=== PATIENT | female | born 1940 | race Two or more races ===

== ENCOUNTER 2018-03-21 15:05 | Inpatient (IN) | payer BC, MEDICARE ==
[~2018-03-21] VITALS: Ht 154.9 cm; Wt 76.0 kg
[~2018-03-21 15:05] MED LIST: ASPI-529 PO
[2018-03-21 15:30] LABS: BASOPHILS # (AUTO) 0.1 X10'3 (0-0.2); BASOPHILS % (AUTO) 0.6 % (0-1); EOSINOPHILS # (AUTO) 0.5 X10'3 (0-0.9); EOSINOPHILS % (AUTO) 3.7 % (0-6); HEMATOCRIT 43.2 % (35.0-45.0); LYMPHOCYTES # (AUTO) 5.1 X10'3 (1.1-4.8); LYMPHOCYTES % (AUTO) 37.6 % (21-51); MEAN CORPUSCULAR HEMOGLOBIN 32.1 PG (27.0-31.0); MEAN CORPUSCULAR HGB CONC 34.7 % (33.0-36.5); MEAN CORPUSCULAR VOLUME 92.4 FL (78-98); MEAN PLATELET VOLUME 10.2 FL (7.4-10.4); MONOCYTES # (AUTO) 0.6 X10'3 (0-0.9); MONOCYTES % (AUTO) 4.3 % (2-12); NEUTROPHILS # (AUTO) 7.3 X10'3 (1.8-7.7); NEUTROPHILS % (AUTO) 53.8 % (42-75); PLATELET COUNT 279 X10'3 (140-440); RED BLOOD COUNT 4.68 X10'6 (4.20-5.60); RED CELL DISTRIBUTION WIDTH 12.5 % (11.5-14.5); WHITE BLOOD COUNT 13.6 X10'3 (4.5-11.0)
[2018-03-21 15:40] LABS: PARTIAL THROMBOPLASTIN TIME 24 SECONDS (22-32); PROTHROMBIN TIME 10.7 SECONDS (9.0-12.0)
[2018-03-21 15:44] LABS: ALANINE AMINOTRANSFERASE 48 U/L (12-78); ALBUMIN 4.4 G/DL (3.4-5.0); ALBUMIN/GLOBULIN RATIO 1.2 (1.1-1.5); ALKALINE PHOSPHATASE 99 IU/L (46-116); ANION GAP 11 (8-16); ASPARTATE AMINO TRANSFERASE 53 U/L (10-37); BILIRUBIN,TOTAL 0.7 MG/DL (0.1-1.0); BLOOD UREA NITROGEN 15 MG/DL (7-18); CALCIUM 9.8 MG/DL (8.5-10.1); CHLORIDE 102 MMOL/L (99-107); CREATININE 0.94 MG/DL (0.40-0.90); GLUCOSE 145 MG/DL (70-104); POTASSIUM 3.6 MMOL/L (3.5-5.1); SODIUM 140 MMOL/L (135-145); TOTAL CARBON DIOXIDE 26.6 MMOL/L (24-32); eGFR 58 ML/MIN
[2018-03-21] MEDS ORDERED: acetaminophen 325mg tablet PO ONE (16:30)
[2018-03-21] MEDS ORDERED: ondansetron 4mg rapidly disintigrating tab PO ONE (16:30)
[2018-03-21 17:12] LABS: LIPASE 10333 U/L (73-393)
[2018-03-21] MEDS ORDERED: piperacillin/tazo 3.375gm/50ml 50 ML IV ONE (18:15)
[2018-03-21] MEDS ORDERED: normal saline 1000ML IV soln IVB ONE (18:15)
[2018-03-21] MEDS ORDERED: normal saline 1000ml 1,000 ML IV ONE (18:15)
[2018-03-21] MEDS ORDERED: NO HOME MEDS (18:40)
[2018-03-21] MEDS ORDERED: ondansetron/PF 4mg/2ml inj IV PRN (19:35)
[2018-03-21] MEDS ORDERED: CADD PCA waste documentation MC PRN (19:40)
[2018-03-21] MEDS ORDERED: naloxone 0.4 mg/ml inj IV PRN (19:40)
[2018-03-21] MEDS ORDERED: LISI-604 PO (19:45)
[2018-03-21 20:30] VITALS: BP 160/68
[2018-03-21] MEDS: HYDROmorphone/NS 1 mg/ml CADD 50 ML IV SCH ×2 (20:33→22:47)
[2018-03-21] MEDS: normal saline 1000ml 1,000 ML IV SCH (20:33)
[2018-03-21] MEDS: heparin, porcine 5000 units/ml vial SQ SCH (20:37)
[2018-03-21 22:00] VITALS: BP 104/64
[2018-03-22] MEDS: piperacillin/tazo 3.375gm/50ml 50 ML IV SCH ×4 (00:02→23:18)
[2018-03-22] MEDS: HYDROmorphone/NS 1 mg/ml CADD 50 ML IV SCH ×12 (01:00→23:00)
[2018-03-22] MEDS: normal saline 1000ml 1,000 ML IV SCH ×2 (05:40→15:14)
[2018-03-22] MEDS ORDERED: HYDR-3972 PO (05:44)
[2018-03-22 06:00] VITALS: BP 116/46
[2018-03-22] MEDS: heparin, porcine 5000 units/ml vial SQ SCH ×3 (06:34→19:21)
[2018-03-22 06:59] LABS: ALANINE AMINOTRANSFERASE 324 U/L (12-78); ALBUMIN 3.2 G/DL (3.4-5.0); ALBUMIN/GLOBULIN RATIO 1.1 (1.1-1.5); ALKALINE PHOSPHATASE 96 IU/L (46-116); ANION GAP 9 (8-16); ASPARTATE AMINO TRANSFERASE 463 U/L (10-37); BILIRUBIN,TOTAL 1.7 MG/DL (0.1-1.0); BLOOD UREA NITROGEN 15 MG/DL (7-18); BUN/CREATININE RATIO 18.1 (6.6-38.0); CALCIUM 8.2 MG/DL (8.5-10.1); CHLORIDE 105 MMOL/L (99-107); CREATININE 0.83 MG/DL (0.40-0.90); GLUCOSE 152 MG/DL (70-104); POTASSIUM 4.9 MMOL/L (3.5-5.1); SODIUM 140 MMOL/L (135-145); TOTAL CARBON DIOXIDE 25.7 MMOL/L (24-32); eGFR 67 ML/MIN
[2018-03-22 07:09] LABS: LIPASE 3880 U/L (73-393)
[2018-03-22 08:21] LABS: BASOPHILS % (AUTO) 0.3 % (0-1); EOSINOPHILS # (AUTO) 0.1 X10'3 (0-0.9); EOSINOPHILS % (AUTO) 0.4 % (0-6); HEMATOCRIT 34.2 % (35.0-45.0); HEMOGLOBIN 11.8 g/dl (12.0-16.0); LYMPHOCYTES # (AUTO) 0.8 X10'3 (1.1-4.8); LYMPHOCYTES % (AUTO) 6.5 % (21-51); MEAN CORPUSCULAR HGB CONC 34.5 % (33.0-36.5); MEAN CORPUSCULAR VOLUME 92.7 FL (78-98); MONOCYTES # (AUTO) 0.6 X10'3 (0-0.9); MONOCYTES % (AUTO) 5.6 % (2-12); NEUTROPHILS % (AUTO) 87.2 % (42-75); PLATELET COUNT 192 X10'3 (140-440); RED BLOOD COUNT 3.69 X10'6 (4.20-5.60); RED CELL DISTRIBUTION WIDTH 12.9 % (11.5-14.5); WHITE BLOOD COUNT 11.5 X10'3 (4.5-11.0)
[2018-03-22 10:00] VITALS: BP 96/41
[2018-03-22 18:00] VITALS: BP 109/44
[2018-03-22] MEDS ORDERED: acetaminophen 325mg tablet PO PRN (19:15)
[2018-03-22] MEDS: lactobacillus rhamnosus 10,000 MMU CELLS/CAPSULE PO SCH (19:21)
[2018-03-22 22:00] VITALS: BP 119/44
[2018-03-23] MEDS: HYDROmorphone/NS 1 mg/ml CADD 50 ML IV SCH ×3 (01:00→05:00)
[2018-03-23] MEDS: normal saline 1000ml 1,000 ML IV SCH ×3 (02:24→14:39)
[2018-03-23 05:00] VITALS: BP 137/67
[2018-03-23 05:27] LABS: BASOPHILS % (AUTO) 0.3 % (0-1); EOSINOPHILS # (AUTO) 0.1 X10'3 (0-0.9); EOSINOPHILS % (AUTO) 0.9 % (0-6); HEMOGLOBIN 11.4 g/dl (12.0-16.0); LYMPHOCYTES % (AUTO) 9.2 % (21-51); MEAN CORPUSCULAR HGB CONC 34.4 % (33.0-36.5); MEAN PLATELET VOLUME 10.4 FL (7.4-10.4); MONOCYTES # (AUTO) 0.6 X10'3 (0-0.9); MONOCYTES % (AUTO) 5.2 % (2-12); NEUTROPHILS # (AUTO) 9.1 X10'3 (1.8-7.7); NEUTROPHILS % (AUTO) 84.4 % (42-75); PLATELET COUNT 168 X10'3 (140-440); RED BLOOD COUNT 3.54 X10'6 (4.20-5.60); RED CELL DISTRIBUTION WIDTH 13.3 % (11.5-14.5); WHITE BLOOD COUNT 10.8 X10'3 (4.5-11.0)
[2018-03-23 05:56] LABS: ALANINE AMINOTRANSFERASE 190 U/L (12-78); ALBUMIN 2.8 G/DL (3.4-5.0); ALBUMIN/GLOBULIN RATIO 0.9 (1.1-1.5); ALKALINE PHOSPHATASE 95 IU/L (46-116); ANION GAP 8 (8-16); ASPARTATE AMINO TRANSFERASE 123 U/L (10-37); BILIRUBIN,TOTAL 1.7 MG/DL (0.1-1.0); BLOOD UREA NITROGEN 11 MG/DL (7-18); BUN/CREATININE RATIO 16.2 (6.6-38.0); CALCIUM 8.1 MG/DL (8.5-10.1); CHLORIDE 105 MMOL/L (99-107); CREATININE 0.68 MG/DL (0.40-0.90); GLUCOSE 104 MG/DL (70-104); POTASSIUM 3.7 MMOL/L (3.5-5.1); SODIUM 139 MMOL/L (135-145); TOTAL CARBON DIOXIDE 25.6 MMOL/L (24-32); TOTAL PROTEIN 5.9 G/DL (6.4-8.2); eGFR 84 ML/MIN
[2018-03-23 10:00] VITALS: BP 156/72
[2018-03-23] MEDS: piperacillin/tazo 3.375gm/50ml 50 ML IV SCH ×3 (10:10→23:15)
[2018-03-23] MEDS: heparin, porcine 5000 units/ml vial SQ SCH ×2 (10:19→19:20)
[2018-03-23] MEDS: lisinopril 10 MG tablet PO SCH (10:19)
[2018-03-23] MEDS: lactobacillus rhamnosus 10,000 MMU CELLS/CAPSULE PO SCH ×2 (10:20→19:21)
[2018-03-23] MEDS ORDERED: HYDROcodone/acetaminophen 5mg/325mg tablet PO PRN (12:20)
[2018-03-23] MEDS: HYDROcodone/acetaminophen 10/325mg tab PO PRN ×3 (12:51→23:13)
[2018-03-23 18:00] VITALS: BP 129/57
[2018-03-23 22:00] VITALS: BP 137/56
[2018-03-24] MEDS: HYDROcodone/acetaminophen 10/325mg tab PO PRN ×3 (04:15→17:07)
[2018-03-24] MEDS: normal saline 1000ml 1,000 ML IV SCH (04:49)
[2018-03-24 05:00] VITALS: BP 136/51
[2018-03-24 06:04] LABS: BASOPHILS % (AUTO) 0.5 % (0-1); EOSINOPHILS # (AUTO) 0.3 X10'3 (0-0.9); EOSINOPHILS % (AUTO) 2.8 % (0-6); HEMATOCRIT 29.4 % (35.0-45.0); HEMOGLOBIN 10.3 g/dl (12.0-16.0); LYMPHOCYTES # (AUTO) 0.7 X10'3 (1.1-4.8); LYMPHOCYTES % (AUTO) 7.6 % (21-51); MEAN CORPUSCULAR HGB CONC 34.9 % (33.0-36.5); MEAN CORPUSCULAR VOLUME 91.5 FL (78-98); MEAN PLATELET VOLUME 10.6 FL (7.4-10.4); MONOCYTES # (AUTO) 0.6 X10'3 (0-0.9); MONOCYTES % (AUTO) 6.4 % (2-12); NEUTROPHILS # (AUTO) 7.9 X10'3 (1.8-7.7); NEUTROPHILS % (AUTO) 82.7 % (42-75); PLATELET COUNT 164 X10'3 (140-440); RED BLOOD COUNT 3.21 X10'6 (4.20-5.60); RED CELL DISTRIBUTION WIDTH 12.8 % (11.5-14.5); WHITE BLOOD COUNT 9.6 X10'3 (4.5-11.0)
[2018-03-24 06:36] LABS: ALANINE AMINOTRANSFERASE 120 U/L (12-78); ALBUMIN 2.6 G/DL (3.4-5.0); ALBUMIN/GLOBULIN RATIO 0.8 (1.1-1.5); ALKALINE PHOSPHATASE 92 IU/L (46-116); ANION GAP 12 (8-16); ASPARTATE AMINO TRANSFERASE 45 U/L (10-37); BILIRUBIN,TOTAL 1.1 MG/DL (0.1-1.0); BLOOD UREA NITROGEN 7 MG/DL (7-18); BUN/CREATININE RATIO 10.3 (6.6-38.0); CALCIUM 8.3 MG/DL (8.5-10.1); CHLORIDE 104 MMOL/L (99-107); CREATININE 0.68 MG/DL (0.40-0.90); GLUCOSE 122 MG/DL (70-104); POTASSIUM 3.4 MMOL/L (3.5-5.1); SODIUM 140 MMOL/L (135-145); TOTAL CARBON DIOXIDE 24.5 MMOL/L (24-32); TOTAL PROTEIN 5.9 G/DL (6.4-8.2); eGFR 84 ML/MIN
[2018-03-24 06:52] LABS: LARGE PLATELETS FEW; PLATELET ESTIMATE NORMAL
[2018-03-24] MEDS: piperacillin/tazo 3.375gm/50ml 50 ML IV SCH ×2 (07:55→16:15)
[2018-03-24] MEDS: lisinopril 10 MG tablet PO SCH (07:56)
[2018-03-24] MEDS: lactobacillus rhamnosus 10,000 MMU CELLS/CAPSULE PO SCH (07:56)
[2018-03-24] MEDS: heparin, porcine 5000 units/ml vial SQ SCH (07:56)
[2018-03-24 10:00] VITALS: BP 143/64
[2018-03-24] MEDS ORDERED: METR500T4 PO (11:37)
== END 2018-03-24 17:45 | disposition home or self-care (01) | DRG 439 ==
LOC: ER 15:05 → ED HOLD 19:35 → ORTHO 4S 20:10
PROVIDERS: ADMIT Internal Medicine; ATTEND Internal Medicine
DX: K85.10 Biliary acute pancreatitis without necrosis or infection (principal); K56.7 Ileus, unspecified; I10 Essential (primary) hypertension; Z96.651 Presence of right artificial knee joint; T40.2X5A Adverse effect of other opioids, initial encounter; Z98.84 Bariatric surgery status; Y92.89 Other specified places as the place of occurrence of the external cause
CPT/HCPCS: 36415; 71045; 74176; 74181; 80053; 82948; 83605; 83690; 84484; 85025; 85610; 85730; 87070; 96365; 99285; J1170; J1644; J2543; J7030

== ENCOUNTER → 2018-04-04 | Day surgery (SDC) | payer BC, MEDICARE ==
[~2018-04-04] VITALS: Ht 154.9 cm; Wt 74.9 kg
[2018-04-04] VITALS (11 sets, daily range): BP systolic 138–161; BP diastolic 73–81
[~2018-04-04] MED LIST changes: -ASPI-529 PO; +BUPIVAcaine/PF 2.5mg/ml (0.25%) 10ml vial ONE; +HYDR-3972 PO; +HYDROcodone/acetaminophen 10/325mg tab PO ONE; +LISI-604 PO; +ceFAZolin 1000mg inj ONE; +ceFOXitin 2 GM ADDvantage bag 100 ML IV ONE; +famotidine 20mg tablet PO ONE; +fentaNYL/PF 50MCG/1 ML 2ML syringe ONE; +meperidine/PF 25mg/ml syringe IV PRN; +midazolam 2 mg/2 ml injection ONE; +morphine 4 MG/ML inj SYRINge IV PRN; +neostigmine methylsulfate 1 MG/ML 10ml vial ONE; +ondansetron/PF 4mg/2ml inj IV PRN; +proCHLORperazine 10 MG/2 ml inj IV PRN; +propofol inj 20 ML IV ONE; +ringers solution, lacted 1,000 ML IV SCH; +rocuronium 10mg/ml inj IV ONE
[2018-04-04 14:41] LABS: BASOPHILS # (AUTO) 0.1 X10'3 (0-0.2); BASOPHILS % (AUTO) 0.9 % (0-1); EOSINOPHILS # (AUTO) 0.2 X10'3 (0-0.9); EOSINOPHILS % (AUTO) 2.3 % (0-6); HEMATOCRIT 38.5 % (35.0-45.0); HEMOGLOBIN 13.1 g/dl (12.0-16.0); LYMPHOCYTES # (AUTO) 1.9 X10'3 (1.1-4.8); LYMPHOCYTES % (AUTO) 23.2 % (21-51); MEAN CORPUSCULAR HEMOGLOBIN 31.6 PG (27.0-31.0); MEAN CORPUSCULAR HGB CONC 34.2 % (33.0-36.5); MEAN CORPUSCULAR VOLUME 92.5 FL (78-98); MEAN PLATELET VOLUME 10.2 FL (7.4-10.4); MONOCYTES # (AUTO) 0.5 X10'3 (0-0.9); MONOCYTES % (AUTO) 5.9 % (2-12); NEUTROPHILS # (AUTO) 5.5 X10'3 (1.8-7.7); NEUTROPHILS % (AUTO) 67.7 % (42-75); PLATELET COUNT 334 X10'3 (140-440); RED BLOOD COUNT 4.16 X10'6 (4.20-5.60); RED CELL DISTRIBUTION WIDTH 12.6 % (11.5-14.5); WHITE BLOOD COUNT 8.1 X10'3 (4.5-11.0)
[2018-04-04 14:47] LABS: ALANINE AMINOTRANSFERASE 43 U/L (12-78); ALBUMIN/GLOBULIN RATIO 1.1 (1.1-1.5); ALKALINE PHOSPHATASE 79 IU/L (46-116); ANION GAP 10 (8-16); ASPARTATE AMINO TRANSFERASE 27 U/L (10-37); BILIRUBIN,TOTAL 0.6 MG/DL (0.1-1.0); BLOOD UREA NITROGEN 15 MG/DL (7-18); CALCIUM 9.4 MG/DL (8.5-10.1); CHLORIDE 101 MMOL/L (99-107); CREATININE 0.88 MG/DL (0.40-0.90); GLUCOSE 188 MG/DL (70-104); POTASSIUM 4.8 MMOL/L (3.5-5.1); SODIUM 136 MMOL/L (135-145); TOTAL CARBON DIOXIDE 24.7 MMOL/L (24-32); TOTAL PROTEIN 7.6 G/DL (6.4-8.2); eGFR 63 ML/MIN
[2018-04-04 14:50] LABS: CLARITY,URINE CLEAR (Clear); COLOR,URINE YELLOW (Yellow); GLUCOSE, URINE NEGATIVE (Neg); KETONES,URINE NEGATIVE (Neg); LEUKOCYTE ESTERASE ,URINE NEGATIVE (Neg); NITRITES, URINE NEGATIVE (Neg); OCCULT BLOOD,URINE NEGATIVE (Neg); PH,URINE 5.5 (4.8-8.0); PROTEIN,URINE NEGATIVE (Neg); UROBILINOGEN,URINE 0.2 E.U/dL (0.2-1.0)
[2018-04-04 14:52] LABS: UA COLLECTION TYPE CLN CATCH MIDSTREAM
[2018-04-04] MEDS: meperidine/PF 25mg/ml syringe IV PRN ×2 (16:45→16:57)
== END | disposition home or self-care (01) ==
LOC: PAS 13:27
PROVIDERS: ATTEND Surgery
DX: K80.10 Calculus of gallbladder with chronic cholecystitis without obstruction (principal); D36.0 Benign neoplasm of lymph nodes; K66.0 Peritoneal adhesions (postprocedural) (postinfection); I10 Essential (primary) hypertension; E66.9 Obesity, unspecified; M19.90 Unspecified osteoarthritis, unspecified site; Z68.31 Body mass index [BMI] 31.0-31.9, adult; Z98.84 Bariatric surgery status; Z96.651 Presence of right artificial knee joint; Z79.82 Long term (current) use of aspirin; Z79.891 Long term (current) use of opiate analgesic; Z85.07 Personal history of malignant neoplasm of pancreas; Z98.890 Other specified postprocedural states; Z79.899 Other long term (current) drug therapy
CPT/HCPCS: 36415; 47562; 80053; 81003; 85025; J0690; J0694; J2175; J2250; J2704; J2710; J3010; J3490; J7030; J7120; A7000

== ENCOUNTER 2018-06-28 01:49 | Outpatient (CLI) | payer BC, MEDICARE ==
[~2018-06-28 01:49] MED LIST changes: -BUPIVAcaine/PF 2.5mg/ml (0.25%) 10ml vial ONE; -HYDROcodone/acetaminophen 10/325mg tab PO ONE; -ceFAZolin 1000mg inj ONE; -ceFOXitin 2 GM ADDvantage bag 100 ML IV ONE; -famotidine 20mg tablet PO ONE; -fentaNYL/PF 50MCG/1 ML 2ML syringe ONE; -meperidine/PF 25mg/ml syringe IV PRN; -midazolam 2 mg/2 ml injection ONE; -morphine 4 MG/ML inj SYRINge IV PRN; -neostigmine methylsulfate 1 MG/ML 10ml vial ONE; -ondansetron/PF 4mg/2ml inj IV PRN; -proCHLORperazine 10 MG/2 ml inj IV PRN; -propofol inj 20 ML IV ONE; -ringers solution, lacted 1,000 ML IV SCH; -rocuronium 10mg/ml inj IV ONE
== END 2018-06-28 23:59 | disposition home or self-care (01) ==
LOC: DIABETIC 01:49
PROVIDERS: ATTEND Physician Assistant
DX: E11.9 Type 2 diabetes mellitus without complications (principal); I10 Essential (primary) hypertension; Z98.84 Bariatric surgery status; Z96.659 Presence of unspecified artificial knee joint
CPT/HCPCS: G0108

== ENCOUNTER 2024-03-13 07:42 | Emergency (ER) | payer BC, MEDICARE, OTHER ==
[~2024-03-13] VITALS: Ht 154.9 cm; Wt 73.9 kg
[~2024-03-13 07:42] MED LIST changes: -LISI-604 PO; +LISI5TAB22 PO
[2024-03-13 07:51] VITALS: BP 208/83; PULSE 83; RESP 18; TEMP 97.6; O2SAT 97
[2024-03-13] MEDS ORDERED: ketorolac tromethamine 15mg/ml inj. IM ONE (09:05)
== END 2024-03-13 09:18 | disposition home or self-care (01) ==
LOC: ER 07:43
DX: M25.512 Pain in left shoulder (principal); I10 Essential (primary) hypertension; Z79.899 Other long term (current) drug therapy; Z79.1 Long term (current) use of non-steroidal anti-inflammatories (NSAID); W18.30XA Fall on same level, unspecified, initial encounter; Y93.89 Activity, other specified; Y92.89 Other specified places as the place of occurrence of the external cause; Y99.0 Civilian activity done for income or pay
CPT/HCPCS: 70450; 73030; 73564; 99284

== ENCOUNTER 2024-05-28 12:09 | Outpatient (CLI) | payer OTHER | END 2024-05-28 23:59 | disposition home or self-care (01) | LOC: MRI 12:09 | PROVIDERS: ATTEND Nurse Practitioner | DX: S50.01XA Contusion of right elbow, initial encounter (principal); S80.01XA Contusion of right knee, initial encounter; S46.911A Strain of unspecified muscle, fascia and tendon at shoulder and upper arm level, right arm, initial encounter; X58.XXXA Exposure to other specified factors, initial encounter; Y93.89 Activity, other specified; Y92.89 Other specified places as the place of occurrence of the external cause; Y99.8 Other external cause status | CPT/HCPCS: 73221 ==